=== PATIENT | male | born 1990 | race Caucasian/White ===

== ENCOUNTER 2016-11-30 11:07 | Day surgery (SDC) | payer BC ==
[2016-11-25 18:03] LABS: HEMOGLOBIN 13.7 g/dL (13.6-17.8)
[2016-11-25 18:20] LABS: A/G RATIO 1.5 (0.7-1.9); ALBUMIN 4.7 G/DL (3.5-5.0); ALKALINE PHOSPHATASE 73 U/L (45-117); BUN (BLOOD UREA NITROGEN) 21 MG/DL (6-23); CALCIUM, SERUM 9.4 MG/DL (8.5-10.4); CHLORIDE, SERUM 106 MMOL/L (96-112); CO2 (CARBON DIOXIDE) 28 MMOL/L (24-34); GFR AFRICAN AMERICAN 119 ML/MIN (>=60); GFR NON AFRICAN AMERICAN 103 ML/MIN (>=60); GLOBULIN 3.2 G/DL (2.5-4.1); GLUCOSE, SERUM 90 MG/DL (60-99); POTASSIUM, SERUM 4.3 MMOL/L (3.5-5.3); SGOT(AST) 18 U/L (5-40); SGPT(ALT) 24 U/L (5-65); SODIUM, SERUM 139 MMOL/L (135-148); TOTAL BILIRUBIN 0.4 MG/DL (0-1.2); TOTAL PROTEIN 7.9 G/DL (6.0-8.5)
--- NOTE | ~2016-11-30 | OP ---
Record Of Operation [facility] [address] [place]. [address] NAME: YURIY MEYER : 88 STATUS : [facility]#: [id number] AGE: 26 ADM/REG DATE : 11/30/16 MR#: [id number] REPORT SERV DATE: 12/03/16 DICTATED BY: JOVI ARRIAZA DATE: 12/03/16 REPORT STATUS : Draft TRANSCRIBED BY: MODL DATE: 12/03/16 DATE OF PROCEDURE: 11/30/2016 PREOPERATIVE DIAGNOSIS: Left inguinal hernia. POSTOPERATIVE DIAGNOSIS: Left inguinal hernia with right inguinal hernia. PROCEDURE: Laparoscopic reduction and mesh patch repair of bilateral inguinal hernia. DESCRIPTION OF OPERATIVE PROCEDURE: The patient was brought to the operating suite, placed in supine position. He underwent satisfactory general endotracheal anesthesia without incident. The skin of the abdomen was scrubbed, prepped, and draped in the usual sterile fashion. 0.5% Marcaine with epinephrine was utilized as supplemental local anesthesia at the intended trocar sites. Initially, an infraumbilical incision was performed dissecting through the skin and subcutaneous tissue to the umbilical fascia. Inferolateral retraction to the left exposed the medial aspect of the left anterior rectus sheath, this was incised, and the medial aspect of the left rectus muscle was identified and retracted laterally exposing the left posterior rectus sheath. A preperitoneal dissection balloon was inserted posterior to the left rectus sheath at the level of pubic tubercle. It was insufflated under direct camera visualization creating a preperitoneal dissection plane. This balloon was then replaced with a structural balloon and CO2 was insufflated into the preperitoneal space for pressures of 15 mmHg throughout the case. Bilateral dissection was performed revealing bilateral indirect defects, inferior epigastric vessels, Hesselbach triangle, and the cord structures were skeletonized. Two separately placed pieces of Bard 3DMax polypropylene mesh, size large, oriented left and right were utilized. They were both placed in local anesthesia, rolled up, and placed in the preperitoneal space and unrolled over the inguinal canals. Multiple firings of the 5 mm helical tacker, SorbaFix tacker was utilized to fix the mesh in position over Hesselbach triangle covering the inferior epigastric vessels and allowing the cord structures to egress from below the lower edge of the mesh. Hemostasis was assured. Then, the preperitoneal space was allowed to collapse and CO2 was milked from the preperitoneal space. The left anterior rectus sheath was closed with [id number] suture of 0 Vicryl. Subcutaneous tissue closed at all sites with interrupted 4-0 Vicryl, running subcutaneous stitch 4-0 Vicryl for the skin. Dermabond skin adhesive placed. The patient tolerated the procedure well and was returned to PACU in stable condition. At the termination of the procedure, sponge, needle, lap, and instrument counts were correct Record Of Operation [address] [address] NAME: YURIY MEYER : 88 STATUS : [facility] PAT#: [id number] AGE: 26 ADM/REG DATE : 11/30/16 MR#: [id number] REPORT SERV DATE: 12/03/16 DICTATED BY: JOVI ARRIAZA DATE: 12/03/16 REPORT STATUS : Draft TRANSCRIBED BY: DEBI DATE: 12/03/16 x3. ESTIMATED BLOOD LOSS: 15 mL. BREANNA/DEBI Jovi Arriaza M.D. / [id number] CC: Jovi Arriaza M.D.
== END 2016-11-30 18:40 | disposition home or self-care (01) ==
LOC: SDC 11:07
PROVIDERS: Specialist
PROC: 0YUA4JZ Supplement Bilateral Inguinal Region with Synthetic Substitute, Percutaneous Endoscopic Approach (ICD-10-PCS; principal; 2016-11-30 12:45)
DX: K40.20 Bilateral inguinal hernia, without obstruction or gangrene, not specified as recurrent (principal); J45.909 Unspecified asthma, uncomplicated; Z90.49 Acquired absence of other specified parts of digestive tract; Z87.891 Personal history of nicotine dependence
CPT/HCPCS: 80053; 85014; 85018; A9270-GY; C1726; C1727; C1781; J0690; J2250; J2405; J2710; J3010